=== PATIENT | female | born 1995 | race Caucasian/White ===

== ENCOUNTER 2021-03-04 10:37 | Emergency (ER) | payer OTHER ==
[~2021-03-04] VITALS: Ht 160 cm; Wt 134.6 kg
[2021-03-04 10:54] VITALS: BP 125/87
[2021-03-04] MEDS ORDERED: PENI500T PO (11:43)
--- NOTE | 2021-03-04 11:43 | PHYS DOC ---
Past History Additional Past Medical Histor: hypothyroid (SERGIO SOLIS APRN) Past Surgical History: No Surgical History (SERGIO SOLIS APRN) Alcohol Use: None (SERGIO SOLIS APRN) General Adult EDM: Chief Complaint: SORE THROAT HPI: HPI: Patient is a 25-year-old female that presents with sore throat, fever, nasal congestion. Patient states symptoms started 2 days ago. Patient's been taking Sudafed and NyQuil. Patient states "I feel like I am swallowing glass". Denies cough. Denies nausea/vomiting/diarrhea. Patient has history of hypothyroidism. (SERGIO SOLIS APRN) Review of Systems: Review of Systems: Constitutional: Reports fever or chills Eyes: Denies change in visual acuity HENT: Reports nasal congestion and sore throat Respiratory: Denies cough or shortness of breath Cardiovascular: Denies chest pain or edema GI: Denies abdominal pain, nausea, vomiting, bloody stools or diarrhea : Denies dysuria Musculoskeletal: Denies back pain or joint pain Integument: Denies rash Neurologic: Denies headache, focal weakness or sensory changes Endocrine: Denies polyuria or polydipsia Lymphatic: Reports swollen cervical lymph nodes Psychiatric: Denies depression or anxiety (SERGIO SOLIS APRN) Allergies: Allergies: Allergies Coded Allergies Type Severity Reaction Last Updated Verified No Known Drug Allergies 03/04/21 No (SERGIO SOLIS APRN) Physical Exam: PE: Constitutional: Well developed, well nourished, no acute distress, non-toxic appearance. [] HENT: Normocephalic, atraumatic, bilateral external ears normal, oropharynx moist, no oral exudates, oropharynx is red and irritated Eyes: PERRLA, EOMI, conjunctiva normal, no discharge. [] Neck: Normal range of motion, cervical lymph node tenderness, no oral exudates, no stridor. [] Cardiovascular:Heart rate regular rhythm, no murmur [] Lungs & Thorax: Bilateral breath sounds clear to auscultation [] Abdomen: Bowel sounds normal, soft, no tenderness, no masses, no pulsatile masses. [] Skin: Warm, dry, no erythema, no rash. [] Back: No tenderness, no CVA tenderness. [] Extremities: No tenderness, no cyanosis, no clubbing, ROM intact, no edema. [] Neurologic: Alert and oriented X 3, normal motor function, normal sensory functi on, no focal deficits noted. [] Psychologic: Affect normal, judgement normal, mood normal. [] (SERGIO SOLIS APRN) Current Patient Data: Vital Signs: Vital Signs Date Time Temp Pulse Resp B/P (MAP) Pulse Ox O2 Delivery O2 Flow Rate FiO2 03/04/21 10:54 97.9 85 18 125/87 (100) 97 Room Air (SERGIO SOLIS APRN) EKG: EKG: [] (SERGIO SOLIS APRN) Radiology/Procedures: Radiology/Procedures: [] (SERGIO SOLIS APRN) Heart Score: C/O Chest Pain: No Risk Factors: Risk Factors: DM, Current or recent (<one month) smoker, HTN, HLP, family history of CAD, obesity. Risk Scores: Score 0 - 3: 2.5% MACE over next 6 weeks - Discharge Home Score 4 - 6: 20.3% MACE over next 6 weeks - Admit for Clinical Observation Score 7 - 10: 72.7% MACE over next 6 weeks - Early Invasive Strategies (SERGIO SOLIS APRN) Course & Med Decision Making: Course & Med Decision Making Pertinent Labs and Imaging studies reviewed. (See chart for details) [] 25-year-old female presents with sore throat, nasal congestion and fevers. Denies cough. No oral exudates noted. Patient does have cervical tenderness. Patient's rapid strep was positive. Discussed results with patient. Patient sent home on penicillin V, 500 twice daily x10 days for strep pharyngitis. A dvised patient to take ibuprofen and Tylenol at home for fevers. Salt water gargles to help with symptoms. Follow-up with PCP if symptoms do not resolve. Return emergency room with worsening symptoms or concerns. Patient is appreciative and understands discharge instructions. Patient is hemodynamically stable upon disposition. (SERGIO SOLIS APRN) Course & Med Decision Making Did not see or evaluate patient. Did not discuss patient with [employer]. Agree with [employer]'s work-up and disposition per note (ISIDRO NICOLAS MD) Dragon Disclaimer: Dragon Disclaimer: This electronic medical record was generated, in whole or in part, using a voice recognition dictation system. (SOLIS,SERGIO TEACHER HEARING IMPAIRED) Departure Departure: Impression: Primary Impression: Streptococcal pharyngitis Disposition: HOME / SELF CARE / HOMELESS Condition: STABLE Referrals: PCP,NO (PCP) Patient Instructions: Viral Pharyngitis Additional Instructions: You are seen in the emergency room for sore throat and nasal congestion. Your strep test was positive. I am sending you home with an antibiotic. Please make sure you take antibiotic in full and as directed. Ibuprofen and Tylenol for fever and pain. Warm salt water gargles to help with pain. Follow-up with PCP if symptoms do not improve. Return to emergency room with worsening symptoms or concerns EMERGENCY DEPARTMENT GENERAL DISCHARGE INSTRUCTIONS Thank you for coming to [facility] (ED) today and trusting us with you care. We trust that you had a positivie experience in our Emergency Department. If you wish to speak to the department management, you may call the director at [phone]. YOUR FOLLOW UP INSTRUCTIONS ARE FOLLOWS: 1. Do you have a private Doctor? If you do not have a private doctor, please ask for a resource list of physicians or clinics that may be able to assist you with follow up care. 2. The Emergency Physician has interpreted your x-rays. The X-Ray specialist will also review them. If there is a change in the findings, you will be notified in 48 hours when at all possible. 3. A lab test or culture has been done, your results will be reviewed and you will be notified if you need a change in treatment. ADDITIONAL INSTRUCTIONS AND INFORMATION: 1. Your care today has been supervised by a physician who is specially trained in emergency care. Many problems require more than one evaluation for a complete diagnosis and treatment. We recommend that you schedule your follow up appointment as recommended to ensure complete treatment of you illness or injury. If you are unable to obtain follow up care and continue to have a problem, or if your condition worsens, we recommend that you return to the ED. 2. We are not able to safely determine your condition over the phone nor are we able to give sound medical advice over the phone. For these safety reasons, if you call for medical advice we will ask you to come to the ED for further evaluation. 3. If you have any questions regarding these discharge instructions please call the ED at [phone]. SAFETY INFORMATION: In the interest of safety, wellness, and injury prevention; we encourage you to wear your sealbelt, if you smoke; quite smoking, and we encourage family to use a protective helmet for bicycling and other sporting events that present an increased risk for head injury. IF YOUR SYMPTOMS WORSEN OR NEW SYMPTOMS DEVELOP, OR YOU HAVE CONCERNS ABOUT YOUR CONDITION; OR IF YOUR CONDITION WORSENS WHILE YOU ARE WAITING FOR YOUR FOLLOW UP APPOINTMENT; EITHER CONTACT YOUR PRIMARY CARE DOCTOR, THE PHYSICIAN WHOSE NAME AND NUMBER YOU WERE GIVEN, OR RETURN TO THE ED IMMEDIATELY. Scripts Penicillin V Potassium (PENICILLIN V POTASSIUM) 500 Mg Tablet 1 TAB PO BID for strep pharangitis for 10 Days, #20 TAB Prov: SERGIO SOLIS APRN 03/04/21 SERGIO SOLIS APRN Mar 04, 2021 11:43 ISIDRO NICOLAS MD Mar 12, 2021 18:16
== END 2021-03-04 11:53 | disposition home or self-care (01) ==
LOC: ER 10:37
DX: J02.0 Streptococcal pharyngitis (principal)
CPT/HCPCS: 87880; 99283